=== PATIENT | female | born 1995 | race Caucasian/White ===

== ENCOUNTER 2018-04-28 13:46 | Emergency (ER) | payer MEDICAID ==
[~2018-04-28] VITALS: Ht 165.1 cm; Wt 59.0 kg
[2018-04-28 13:52] VITALS: BP_SYST 107
--- NOTE | 2018-04-28 13:56 | NUR ---
Patient to ER bed 07 to gown for evaluation. Side rails up.
--- NOTE | 2018-04-28 14:03 | NUR ---
ER at bedside examining patient.
--- NOTE | 2018-04-28 14:10 | NUR ---
Pt presents to ER with multiple complaints. Pt c/o flu-like symptoms, body aches, bilateral ear pain 5/10 on pain scale. Pt reports she is approximately 4-5 weeks , urine pregnany test performed in ER confirmed . Pt in no acute distress, speaking full sentences, respirations even and unlabored, ambualtory, AOX4.
[2018-04-28 14:16] LABS: BILIRUBIN,URINE 1+ (NEGATIVE); BLOOD, URINE 3+ (NEGATIVE); CLARITY/URINE SL HAZY (CLEAR); COLOR,URINE YELLOW (YELLOW); GLUCOSE,URINE NEGATIVE (NEGATIVE); KETONES,URINE NEGATIVE (NEGATIVE); LEUKOCYTE ESTERASE ,URINE 2+ (NEGATIVE); NITRITE, URINE POSITIVE (NEGATIVE); PROTEIN URINE 2+ (NEGATIVE)
[2018-04-28 14:36] LABS: BACTERIA,URINE MANY /HPF (None Seen); MUCUS,URINE None Seen /LPF (None Seen)
[2018-04-28 14:47] LABS: INR 0.9 (0.8-1.2); PROTHROMBIN TIME 9.5 SECS (9.5-12.5)
[2018-04-28 14:49] LABS: CREATININE 0.53 mg/dL (0.55-1.30); POTASSIUM 3.5 mmol/L (3.5-5.1); TOTAL BILIRUBIN 0.4 mg/dL (0.0-1.0)
[2018-04-28 14:50] LABS: ALBUMIN 3.6 g/dL (3.4-4.8)
[2018-04-28 14:57] LABS: BASOPHILS # (AUTO) 0.1 K/uL (0.0-0.2); EOSINOPHILS # (AUTO) 0.3 K/uL (0.0-0.4); EOSINOPHILS % (AUTO) 2.5 % (0.0-4.0); HEMATOCRIT 35.5 % (36-48); HEMOGLOBIN 11.9 g/dL (12.0-16.0); LYMPHOCYTES # (AUTO) 1.8 K/uL (1.0-5.5); LYMPHOCYTES % (AUTO) 17.1 % (20.5-51.5); MEAN CORPUSCULAR HEMOGLOBIN 29 pg (27-31); MEAN CORPUSCULAR HGB CONC 34 % (32-36); MEAN CORPUSCULAR VOLUME 87 fL (79.0-98.0); MONOCYTES # (AUTO) 0.5 K/uL (0.0-1.0); MONOCYTES % (AUTO) 4.5 % (1.7-9.3); NEUTROPHILS # (AUTO) 7.8 K/uL (1.8-7.7); NEUTROPHILS % (AUTO) 74.9 % (40.0-70.0); PLATELET COUNT (AUTO) 263 K/uL (130-430); RED BLOOD CELL COUNT(AUTO) 4.08 MIL/uL (4.2-6.2); RED CELL DISTRIBUTION WIDTH 14.3 % (9.0-15.0); WHITE BLOOD COUNT (AUTO) 10.4 K/uL (4.8-10.8)
--- NOTE | 2018-04-28 15:05 | NUR ---
Dr. Calzada at bedside speaking with pt discussing results.
[2018-04-28] MEDS ORDERED: cefTRIAXone 1 GM VIAL IM ONE (15:15)
--- NOTE | 2018-04-28 15:22 | NUR ---
Pt medicated as ordered by Dr. Calzada; pt tolerated well; will continue to monitor.
[2018-04-28 15:30] VITALS: BP_SYST 107
--- NOTE | 2018-04-28 15:30 | NUR ---
Patient given written and verbal discharge instructions and verbalizes understanding. ER MD discussed with patient the results and treatment provided. Patient in stable condition. ID arm band removed. Rx of Macrobid given. Patient educated on pain management and to follow up with PMD. Pain Scale 3/10. Opportunity for questions provided and answered. Medication side effect fact sheet provided.
== END 2018-04-28 15:30 | disposition home or self-care (01) ==
LOC: SED 13:46
DX: O23.41 Unspecified infection of urinary tract in pregnancy, first trimester (principal); O26.891 Other specified pregnancy related conditions, first trimester; H92.02 Otalgia, left ear; R50.9 Fever, unspecified; Z3A.14 14 weeks gestation of pregnancy
CPT/HCPCS: 36415; 76801; 80053; 81000; 81025; 82150; 83690; 85025; 85610; 85730; 87086; 87186; 96372; 99285; J0696